=== PATIENT | male | born 1970 | race Caucasian/White ===

== ENCOUNTER 2017-05-26 00:24 | Emergency (ER) | payer MEDICAID ==
[2017-05-26 00:36] VITALS: BP 128/80; PULSE 84; RESP 18; TEMP 98.2; O2SAT 91
--- NOTE | 2017-05-26 00:57 | EDPHY ---
H & P Stated Complaint: Tooth pain Time Seen by Provider: 05/26/17 00:38 HPI/ROS: Chief Complaint: Jaw pain HPI: 47-year-old male who is status post dental extraction several weeks ago having worsening right lower jaw pain for the last week. He [facility] but missed his appointment. He has been stealing mouthwash in drinking it for pain relief. Denies any fevers or chills. No discharge her. He has had a area of ulceration he was told was a cold sore. He is a dentate. He has not been taking his medicines. He has not followed up dentist. ROS: 10 point Review of Systems is negative except as noted in the HPI. Social History: Positive smoking, positive alcohol, patient is homeless Family History: [non-contributory] Physical Exam: General: Awake, alert, no acute distress Mouth: patient is a dentate. He has got some ulceration in the right lower gingiva. There is mild diffuse erythema but there is no fluctuance or pointing. Neck: Supple, no masses. - Personal History Current Tetanus/Diphtheria Vaccine: Yes - Medical/Surgical History Hx Asthma: No Hx Chronic Respiratory Disease: No Hx Diabetes: No Hx Cardiac Disease: No Hx Renal Disease: No Hx Cirrhosis: No Hx Alcoholism: No - Social History Smoking Status: Current every day smoker Constitutional: Initial Vital Signs Temperature (C) 36.8 C 05/26/17 00:33 Heart Rate 84 05/26/17 00:33 Respiratory Rate 18 05/26/17 00:33 Blood Pressure 128/80 H 05/26/17 00:33 O2 Sat (%) 91 L 05/26/17 00:33 O2 Delivery Mode Room Air Allergies/Adverse Reactions: No Known Allergies Allergy (Unverified 05/26/17 00:36) Home Medications: Medication Instructions Recorded NK [No Known Home Meds] 05/26/17 Medical Decision Making Procedures: Procedure: Regional anesthesia. A dental block was performed for jaw pain. The block was performed with 0.5% Marcaine. The patient experienced complete pain relief. The procedure was performed by myself. ED Course/Re-evaluation: 47-year-old meth mandibular pain status post dental extraction. There is a small area of ulceration but there is no obvious abscess at this time. I have performed a alveolar nerve block. He has gotten Tylenol. Will discharge and have him follow up with dental aid in the morning. Departure - Departure Disposition: Home, Routine, Self-Care Clinical Impression: Jaw pain Condition: Good Instructions: Toothache (ED) Additional Instructions: Follow up with dental aid later today. Referrals: [facility] [Outside] - As per Instructions
[2017-05-26] MEDS ORDERED: IBUPROFEN 600 MG TAB PO ONE (01:00)
== END 2017-05-26 01:15 | disposition home or self-care (01) ==
PROC: 3E0X3BZ Introduction of Anesthetic Agent into Cranial Nerves, Percutaneous Approach (ICD-10-PCS; principal; 2017-05-26)
DX: R68.84 Jaw pain (principal); F17.200 Nicotine dependence, unspecified, uncomplicated

== ENCOUNTER 2017-06-01 23:27 | Emergency (ER) | payer MEDICAID ==
--- NOTE | 2017-06-01 23:35 | EDPHY ---
H & P Stated Complaint: cough X 5 days HPI/ROS: HPI CHIEF COMPLAINT: Cough and fever HISTORY OF PRESENT ILLNESS: This patient 47-year-old male, presents emergency room with cough, and fever. He arrives by EMS. He staying at a local assisted. Patient reports to me that for the past 48 hrs he has had progressively worsening cough with productive sputum green in nature, also reports a fever to 101. States that he has been feeling worse generalized weakness, muscle aches, joint pain. No vomiting. Does have pain in his chest when he coughs but no chest pain. Past Medical History: Hepatitis B and hepatitis-C Past Surgical History: Hernia repair. Social History: Smokes tobacco, marijuana methamphetamine, homeless. Family History: Noncontributory ROS REVIEW OF SYSTEMS: A comprehensive 10 point review of systems is otherwise negative aside from elements mentioned in the history of present illness. Exam Constitutional appears well nontoxic triage nursing summary reviewed, vital signs reviewed, awake/alert. Eyes normal conjunctivae and sclera, EOMI, PERRLA. HENT normal inspection, atraumatic, moist mucus membranes, no epistaxis, neck supple/ no meningismus, no raccoon eyes. Respiratory decreased breath sounds bilaterally, wheezing throughout lung vu, crackles at the bases. Cardiovascular rate normal, regular rhythm, no murmur, no edema, distal pulses normal. Gastrointestinal soft, non-tender, no rebound, no guarding, normal bowel sounds, no distension, no pulsatile mass. Genitourinary no CVA tenderness. Musculoskeletal no midline vertebral tenderness, full range of motion, no calf swelling, no tenderness of extremities, no meningismus, good pulses, neurovascularly intact. Skin pink, warm, & dry, no rash, skin atraumatic. Neurologic awake, alert and oriented x 3, AAOx3, moves all 4 extremities equally, motor intact, sensory intact, CN II-XII intact, normal cerebellar, normal vision, normal speech. Psychiatric normal mood/affect. Heme/Lymph/Immune no lymphadenopathy. Differential Diagnosis: Includes but is not limited to in a particular order, pneumonia, viral pneumonia, bacterial pneumonia, bronchitis, pneumothorax, CHF, influenza Medical Decision Making: Plan for this patient IV establishment fluid bolus, DuoNeb breathing treatment, check EKG, troponin, blood cultures, lactic acid, two view chest x-ray, influenza. Re-evaluate. Re-evaluation: EKG interpretation by me on record in [employer] system. Impression time of EKG 234, this is sinus rhythm rate of 84. There is no acute ischemic change. No ST elevation. No ST depression. No significant T-wave abnormalities. Unremarkable nonischemic EKG. 0113: I did re-evaluate this patient this time is resting comfortably. Feels much better after DuoNeb breathing treatment. Coughing is well controlled. Blood work has been reviewed his psoas x-ray troponin and EKG. Chest x-ray did not show focal pneumonia. Re-examination of his lungs they are much improved good air movement no significant wheezing. Will prescribe albuterol, azithromycin, and steroids for acute bronchitis. He understands to return emergency room if develops worsening shortness of breath, wheezing, cough, fever or pain. Source: Patient - Personal History Current Tetanus/Diphtheria Vaccine: Yes Current Tetanus Diphtheria and Acellular Pertussis (TDAP): Yes - Medical/Surgical History Hx Asthma: No Hx Chronic Respiratory Disease: No Hx Diabetes: No Hx Cardiac Disease: No Hx Renal Disease: No Hx Cirrhosis: No Hx Alcoholism: No Hx HIV/AIDS: No Hx Splenectomy or Spleen Trauma: No Other PMH: hernia surgery, bipolar, PTSD - Social History Smoking Status: Current every day smoker Constitutional: Initial Vital Signs Temperature (C) 36.8 C 06/01/17 23:29 Heart Rate 96 06/01/17 23:29 Respiratory Rate 18 06/01/17 23:29 Blood Pressure 109/75 06/01/17 23:29 O2 Sat (%) 94 06/01/17 23:29 Allergies/Adverse Reactions: ibuprofen Allergy (Verified 06/01/17 23:29) Home Medications: Medication Instructions Recorded AZITHROMYCIN [Z-PACK] 250 mg PO DAILY #6 tab 06/02/17 predniSONE 60 mg PO DAILY #15 tab 06/02/17 Medical Decision Making - Diagnostics Imaging Results: Imaging Impressions Chest X-Ray 06/01/17 23:38 Impression: No acute thoracic abnormality. - Data Points Laboratory Results: Laboratory Results 06/01/17 23:45 06/01/17 23:45 06/02/17 06/01/17 06/01/17 00:00 23:50 23:45 WBC RBC Hgb Hct MCV MCH MCHC RDW Plt Count MPV Neut % (Auto) Lymph % (Auto) [place] % (Auto) Eos % (Auto) Baso % (Auto) Nucleat RBC Rel Count Absolute Neuts (auto) Absolute Lymphs (auto) Absolute Monos (auto) Absolute Eos (auto) Absolute Basos (auto) Absolute Nucleated RBC Immature Gran % Immature Gran # PT INR APTT VBG Lactic Acid 1.5 mmol/L mmol/L (0.7-2.1) Sodium Potassium Chloride Carbon Dioxide Anion Gap BUN Creatinine Estimated GFR Glucose Calcium Magnesium Total Bilirubin Conjugated Bilirubin Unconjugated Bilirubin AST ALT Alkaline Phosphatase Creatine Kinase CK-MB (CK-2) Fraction Troponin I NT-Pro-B Natriuret Pep Total Protein Albumin Lipase Nasal Influenza A PCR NEGATIVE FOR FLU A (NEGATIVE) Nasal Influenza B PCR NEGATIVE FOR FLU B (NEGATIVE) Urine Opiates Screen NEGATIVE (NEGATIVE) Urine Barbiturates NEGATIVE (NEGATIVE) Ur Phencyclidine Scrn NEGATIVE (NEGATIVE) Ur Amphetamine Screen NEGATIVE (NEGATIVE) U Benzodiazepines Scrn NEGATIVE (NEGATIVE) Urine Cocaine Screen NEGATIVE (NEGATIVE) U Marijuana (THC) Screen NON-NEGATIVE H (NEGATIVE) Ethyl Alcohol 06/01/17 06/01/17 06/01/17 23:45 23:45 23:45 WBC 7.74 10^3/uL 10^3/uL (3.80-9.50) RBC 4.37 10^6/uL L 10^6/uL (4.40-6.38) Hgb 14.6 g/dL g/dL (13.7-17.5) Hct 41.5 % % (40.0-51.0) MCV 95.0 fL fL (81.5-99.8) MCH 33.4 pg pg (27.9-34.1) MCHC 35.2 g/dL g/dL (32.4-36.7) RDW 12.9 % % (11.5-15.2) Plt Count 246 10^3/uL 10^3/uL (150-400) MPV 9.2 fL fL (8.7-11.7) Neut % (Auto) 60.7 % % (39.3-74.2) Lymph % (Auto) 25.7 % % (15.0-45.0) Powell % (Auto) 10.7 % % (4.5-13.0) Eos % (Auto) 1.7 % % (0.6-7.6) Baso % (Auto) 0.9 % % (0.3-1.7) Nucleat RBC Rel Count 0.0 % % (0.0-0.2) Absolute Neuts (auto) 4.70 10^3/uL 10^3/uL (1.70-6.50) Absolute Lymphs (auto) 1.99 10^3/uL 10^3/uL (1.00-3.00) Absolute Monos (auto) 0.83 10^3/uL H 10^3/uL (0.30-0.80) Absolute Eos (auto) 0.13 10^3/uL 10^3/uL (0.03-0.40) Absolute Basos (auto) 0.07 10^3/uL 10^3/uL (0.02-0.10) Absolute Nucleated RBC 0.00 10^3/uL 10^3/uL (0-0.01) Immature Gran % 0.3 % % (0.0-1.1) Immature Gran # 0.02 10^3/uL 10^3/uL (0.00-0.10) PT 13.5 SEC SEC (12.0-15.0) INR 1.01 (0.83-1.16) APTT 27.4 SEC SEC (23.0-38.0) VBG Lactic Acid Sodium 137 mEq/L mEq/L (134-144) Potassium 4.2 mEq/L mEq/L (3.5-5.2) Chloride 99 mEq/L mEq/L (97-110) Carbon Dioxide 27 mEq/l mEq/l (22-31) Anion Gap 11 mEq/L mEq/L (8-16) BUN 14 mg/dL mg/dL (7-23) Creatinine 0.7 mg/dL mg/dL (0.7-1.3) Estimated GFR > 60 Glucose 112 mg/dL H mg/dL (70-100) Calcium 9.0 mg/dL mg/dL (8.5-10.4) Magnesium 1.9 mg/dL mg/dL (1.6-2.3) Total Bilirubin 0.6 mg/dL mg/dL (0.1-1.4) Conjugated Bilirubin 0.3 mg/dL mg/dL (0.0-0.5) Unconjugated Bilirubin 0.3 mg/dL mg/dL (0.0-1.1) AST 169 IU/L H IU/L (17-59) ALT 232 IU/L H IU/L (21-72) Alkaline Phosphatase 81 IU/L IU/L (38-126) Creatine Kinase 96 IU/L IU/L (0-224) CK-MB (CK-2) Fraction 2.30 ng/mL ng/mL (0.00-3.19) Troponin I < 0.012 ng/mL ng/mL (0.000-0.034) NT-Pro-B Natriuret Pep 34 pg/mL pg/mL (0-125) Total Protein 7.0 g/dL g/dL (6.3-8.2) Albumin 3.6 g/dL g/dL (3.5-5.0) Lipase 223 IU/L IU/L (23-300) Nasal Influenza A PCR Nasal Influenza B PCR Urine Opiates Screen Urine Barbiturates Ur Phencyclidine Scrn Ur Amphetamine Screen U Benzodiazepines Scrn Urine Cocaine Screen U Marijuana (THC) Screen Ethyl Alcohol < 10 mg/dL mg/dL (0-10) Medications Given: Discontinued Medications Acetaminophen (Tylenol) 1,000 mg PO EDNOW ONE Stop: 06/02/17 00:37 Last Admin: 06/02/17 00:38 Dose: 1,000 mg Albuterol/Ipratropium (Duoneb) 3 ml IH EDNOW ONE Stop: 06/01/17 23:40 Last Admin: 06/01/17 23:45 Dose: 3 ml Sodium Chloride (Ns) 1,000 mls @ 0 mls/hr IV EDNOW ONE; Wide Open PRN Reason: Protocol Stop: 06/01/17 23:39 Last Admin: 06/01/17 23:45 Dose: 1,000 mls Departure - Departure Disposition: Home, Routine, Self-Care Clinical Impression: Acute bronchitis Qualifiers: Bronchitis organism: unspecified organism Qualified Code(s): J20.9 - Acute bronchitis, unspecified Condition: Good Instructions: Acute Bronchitis (ED) Additional Instructions: 1. Drink lots of fluids stay well-hydrated. 2. Albuterol 2 puffs every 4 hr as needed for wheezing and coughing. 3. Antibiotic as prescribed. 4. Steroids as prescribed. Referrals: NONE *PRIMARY CARE P,. [Primary Care Provider] - As per Instructions Prescriptions: AZITHROMYCIN [Z-PACK] 250 mg PO DAILY #6 tab predniSONE 60 mg PO DAILY #15 tab
[2017-06-01] MEDS ORDERED: NS 1,000 ML IV ONE (23:38)
[2017-06-01] MEDS ORDERED: IPRATROPIUM/ALBUTEROL 3 ML DEYVIAL IH ONE (23:39)
--- NOTE | 2017-06-01 23:47 | CPEKG ---
Heart Rate: 84 RR Interval: 714 P-R Interval: 132 QRSD Interval: 104 QT Interval: 388 QTC Interval: 459 P [place]: 25 QRS [place]: 75 T Wave [place]: 43 EKG Severity - NORMAL ECG - EKG Impression: SINUS RHYTHM Electronically Signed By: Chad Steiner 02-Jun-2017 07:19:27
[2017-06-02 00:02] LABS: % IMMATURE GRANULYOCYTES 0.3 % (0.0-1.1); ABSOLUTE IMMATURE GRANULOCYTES 0.02 10^3/uL (0.00-0.10); ADD DIFF? NO; ADD MORPH? NO; ADD SCAN? NO; ATYPICAL LYMPHOCYTE FLAG 70 (0-99); FRAGMENT RBC FLAG 0 (0-99); HEMATOCRIT 41.5 % (40.0-51.0); HEMOGLOBIN 14.6 g/dL (13.7-17.5); LEFT SHIFT FLG 0 (0-99); LIPEMIA HEMOLYSIS FLAG 90 (0-99); MEAN CELL HEMOGLOBIN 33.4 pg (27.9-34.1); MEAN CELL HEMOGLOBIN CONCENTR. 35.2 g/dL (32.4-36.7); MEAN PLATELET VOLUME 9.2 fL (8.7-11.7); PLATELET CLUMPS FLAG 0 (0-99); PLATELET COUNT 246 10^3/uL (150-400); RED BLOOD CELL COUNT 4.37 10^6/uL (4.40-6.38); RED CELL DISTRIBUTION WIDTH 12.9 % (11.5-15.2)
[2017-06-02 00:10] LABS: APTT 27.4 SEC (23.0-38.0); INR 1.01 (0.83-1.16); PROTIME(PATIENT) 13.5 SEC (12.0-15.0)
[2017-06-02 00:14] LABS: ALANINE AMINOTRANSFERASE 232 IU/L (21-72); ALBUMIN 3.6 g/dL (3.5-5.0); ALKALINE PHOSPHATASE 81 IU/L (38-126); ANION GAP 11 mEq/L (8-16); ASPARTATE AMINOTRANSFERASE 169 IU/L (17-59); BILIRUBIN,TOTAL 0.6 mg/dL (0.1-1.4); BILIRUBIN-CONJUGATED 0.3 mg/dL (0.0-0.5); BILIRUBIN-UNCONJUGATED 0.3 mg/dL (0.0-1.1); CARBON DIOXIDE 27 mEq/l (22-31); CHLORIDE 99 mEq/L (97-110); CREATININE 0.7 mg/dL (0.7-1.3); ETHANOL SERUM < 10 mg/dL (0-10); GLOMERULAR FILTRATION RATE > 60; GLUCOSE 112 mg/dL (70-100); MAGNESIUM 1.9 mg/dL (1.6-2.3); POTASSIUM 4.2 mEq/L (3.5-5.2); SODIUM 137 mEq/L (134-144)
[2017-06-02 00:27] LABS: TROPONIN I < 0.012 ng/mL (0.000-0.034)
[2017-06-02] MEDS ORDERED: ACETAMINOPHEN 500 MG TAB PO ONE (00:36)
[2017-06-02] MEDS ORDERED: ACETAMINOPHEN 500 MG TAB ONE (00:37)
[2017-06-02] MEDS ORDERED: predniSONE 20 MG TAB PO ONE (01:14)
[2017-06-02] MEDS ORDERED: ALBUTEROL INH PREPACK MDI TAKEHOME ONE (01:15)
[2017-06-02 01:45] VITALS: BP 143/75; PULSE 83; RESP 16; TEMP 98.1; O2SAT 94
== END 2017-06-02 01:37 | disposition home or self-care (01) ==
LOC: EDUNIT#
DX: J20.9 Acute bronchitis, unspecified (principal); F17.200 Nicotine dependence, unspecified, uncomplicated; E86.9 Volume depletion, unspecified
CPT/HCPCS: 80305; G0480

== ENCOUNTER 2017-06-05 23:46 | Emergency (ER) | payer MEDICAID ==
--- NOTE | 2017-06-05 23:49 | EDPHY ---
H & P HPI/ROS: HPI CHIEF COMPLAINT: Cough, shortness of breath HISTORY OF PRESENT ILLNESS: Patient very pleasant 47-year-old male, homeless, history polysubstance abuse, continues to smoke tobacco daily, methamphetamine, occasional alcohol use, presents emergency room for cough and shortness of breath. Patient staying at a local long-term. Patient presents emergency room by EMS for shortness of breath cough and some wheezing. Patient states that he has been using inhaler and is out of it. He did not take his prednisone as previously prescribed. He has intermittently taken his azithromycin that I additionally prescribed as well. He denies chest pain or fever. Presents emergency room with a main complaint of cough and intermittent wheezing. Past Medical History: Hepatitis-B, hepatitis-C, polysubstance abuse Past Surgical History: No significant surgical history Social History: Homeless, smokes tobacco, smokes marijuana, smokes methamphetamine, alcohol use Family History: Noncontributory ROS REVIEW OF SYSTEMS: A comprehensive 10 point review of systems is otherwise negative aside from elements mentioned in the history of present illness. Exam Constitutional appears well nontoxic triage nursing summary reviewed, vital signs reviewed, awake/alert. No hypoxia, afebrile. Eyes normal conjunctivae and sclera, EOMI, PERRLA. HENT normal inspection, atraumatic, moist mucus membranes, no epistaxis, neck supple/ no meningismus, no raccoon eyes. Respiratory bronchitic sounding cough, faint wheezing bilaterally, no respiratory distress Cardiovascular rate normal, regular rhythm, no murmur, no edema, distal pulses normal. Gastrointestinal soft, non-tender, no rebound, no guarding, normal bowel sounds, no distension, no pulsatile mass. Genitourinary no CVA tenderness. Musculoskeletal no midline vertebral tenderness, full range of motion, no calf swelling, no tenderness of extremities, no meningismus, good pulses, neurovascularly intact. Skin pink, warm, & dry, no rash, skin atraumatic. Neurologic awake, alert and oriented x 3, AAOx3, moves all 4 extremities equally, motor intact, sensory intact, CN II-XII intact, normal cerebellar, normal vision, normal speech. Psychiatric normal mood/affect. Heme/Lymph/Immune no lymphadenopathy. Differential Diagnosis: Includes but is not limited to in a particular order, acute bronchitis, pneumonia, reactive airway disease, tobacco abuse, methamphetamine abuse, alcohol abuse, marijuana abuse, pneumothorax, CHF Medical Decision Making: Plan for this patient DuoNeb breathing treatment, chest x-ray to rule out pneumothorax or focal pneumonia. And will re-evaluate. Re-evaluation: ED x-ray chest one view: Negative for acute cardiopulmonary disease. 1223: I did re-evaluate this patient at this time. Pulse ox 94% on room air. Good air movement bilaterally with no wheezing. Feels much better after DuoNeb breathing treatment. Chest x-ray has been reviewed shows no acute cardiopulmonary disease. I do recommend the patient stop smoking cigarettes. New albuterol inhaler provided. Prednisone burst. And return precautions given. He understands Source: Patient, EMS - Medical/Surgical History Hx Asthma: No Hx Chronic Respiratory Disease: No Hx Diabetes: No Hx Cardiac Disease: No Hx Renal Disease: No Hx Cirrhosis: No Hx Alcoholism: No Hx HIV/AIDS: No Hx Splenectomy or Spleen Trauma: No Other PMH: hernia surgery, bipolar, PTSD - Social History Smoking Status: Current every day smoker Constitutional: Initial Vital Signs Temperature (C) 37 C 06/05/17 23:49 Heart Rate 77 06/05/17 23:49 Respiratory Rate 20 06/05/17 23:49 Blood Pressure 142/95 H 06/05/17 23:49 O2 Sat (%) 94 06/05/17 23:49 O2 Delivery Mode Room Air Allergies/Adverse Reactions: amitriptyline Allergy (Verified 06/05/17 23:52) fluoxetine [From Prozac] Allergy (Verified 06/05/17 23:52) ibuprofen Allergy (Verified 06/01/17 23:29) Home Medications: Medication Instructions Recorded AZITHROMYCIN [Z-PACK] 250 mg PO DAILY #6 tab 06/02/17 predniSONE 60 mg PO DAILY #15 tab 06/02/17 Albuterol [Proventil Inhaler HFA 1 - 2 puffs IH Q4H #1 mdi 06/05/17 (*)] predniSONE 60 mg PO DAILY #15 tab 06/05/17 Medical Decision Making - Data Points Medications Given: Discontinued Medications Acetaminophen (Tylenol) 1,000 mg PO EDNOW ONE Stop: 06/06/17 00:18 Last Admin: 06/06/17 00:17 Dose: 1,000 mg Albuterol Sulfate (Proventil Inh Prepack) 1 mdi TAKEHOME EDNOW ONE Stop: 06/05/17 23:56 Last Admin: 06/06/17 00:01 Dose: 1 mdi Albuterol/Ipratropium (Duoneb) 3 ml IH EDNOW ONE Stop: 06/05/17 23:52 Last Admin: 06/06/17 00:02 Dose: 3 ml Departure - Departure Disposition: Home, Routine, Self-Care Clinical Impression: Acute bronchitis Qualifiers: Bronchitis organism: unspecified organism Qualified Code(s): J20.9 - Acute bronchitis, unspecified Condition: Good Instructions: Albuterol (By breathing), Acute Bronchitis (ED), Cold Symptoms ( ED), Acute Cough (ED), Wheezing (ED) Additional Instructions: 1. Stop smoking. Referrals: Patient,NotPresent [Unknown] - As per Instructions Prescriptions: Albuterol [Proventil Inhaler HFA (*)] 1 - 2 puffs IH Q4H #1 mdi predniSONE 60 mg PO DAILY #15 tab
[2017-06-05] MEDS ORDERED: IPRATROPIUM/ALBUTEROL 3 ML DEYVIAL IH ONE (23:51)
[2017-06-05] MEDS ORDERED: ALBUTEROL INH PREPACK MDI TAKEHOME ONE (23:55)
[2017-06-06] MEDS ORDERED: ACETAMINOPHEN 500 MG TAB ONE (00:16)
[2017-06-06] MEDS ORDERED: ACETAMINOPHEN 500 MG TAB PO ONE (00:17)
[2017-06-06 01:09] VITALS: BP 116/76; PULSE 85; RESP 16; TEMP 98.2; O2SAT 93
== END 2017-06-06 01:08 | disposition home or self-care (01) ==
LOC: EDUNIT#
DX: J20.9 Acute bronchitis, unspecified (principal); F17.200 Nicotine dependence, unspecified, uncomplicated